=== PATIENT | female | born 1930 | race Caucasian/White ===

== ENCOUNTER 2018-02-24 09:59 | Emergency (ER) | payer OTHER, MEDICARE ==
--- NOTE | 2018-02-24 10:06 | PDOC ---
History of Present Illness - General Chief Complaint: Constipation Stated Complaint: CONSTIPATION Time Seen by Provider: 02/24/18 10:00 - History of Present Illness Initial Comments: 02/24/18 10:01 87 yo F with h/o rheumatoid arthritis and hypothyrodism who p/w constipation. Patient with last normal bowel movement ( 02-17-17). Reports ability to pass flatus, Reports scant " inch," thin bowel movement yesterday evening (02-23-17) . Patient endorses repetitive straining on BM attempt. Denies abdominal pain, N/ V, BPR. Has been taking Metamucil beginning (02-19-17) daily. Daily Prune use intake. Patient denies Salas, neck stiffness, vision change, N/V, F,C, Cough, wheezing, Palpitations, leg pain/swelling, CP, SOB, urinary complaints, abdominal pain, diarrhea, BPR, hematuria, lightheadedness, weakness, sensory changes. PMHx: as noted above. H/o appendectomy. ROS: as noted SHx: Denies Etoh, IVDA. Allergies: Lidocaine, Dipyriadomle, PCN, Epinephrine Past History - Past Medical History Allergies/Adverse Reactions: Allergies Allergy/AdvReac Type Severity Reaction Status Date / Time lidocaine HCl Allergy Severe Difficulty Verified 01/26/16 20:20 [From Xylocaine] Breathing dipyridamole Allergy Intermediate Hives Verified 01/26/16 20:20 [From Persantine] Penicillins Allergy Intermediate Swelling Verified 01/26/16 20:20 epinephrine Allergy Verified 01/26/16 20:20 Home Medications: Ambulatory Orders Etanercept [Enbrel] 50 mg SQ WEEKLY 10/23/14 Methotrexate Sodium [Methotrexate] 7.5 mg PO 3 TABS ONCE/WK 10/23/14 Calcium Carbonate/Vitamin D3 [Calcium 600 + Vit D Tablet] 1 each PO DAILY Diazepam [Valium] 5 mg PO DAILY PRN 02/24/18 Folic Acid 0.4 mg PO DAILY 02/24/18 Magnesium Oxide [Magnesium] 500 mg PO DAILY 02/24/18 Multivit-Min/Iron/Folic/Lutein [Centrum Silver Women Tablet] 1 each PO DAILY [place]-3 Fatty Acids [[place]-3] 1,000 mg PO DAILY 02/24/18 Polyethylene Glycol 3350 [Miralax (For Bowel Prep) -] 17 gm PO DAILY #1 bottle 02/24/18 Psyllium Husk [Metamucil] 1 tbs PO DAILY 02/24/18 Anemia: No Asthma: No Cancer: No Cardiac Disorders: No CVA: No COPD: No CHF: No Dementia: No Diabetes: No GI Disorders: No Disorders: No HTN: No Hypercholesterolemia: No Liver Disease: No Seizures: No 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) - Surgical History Abdominal Surgery: Yes Appendectomy: Yes Cardiac Surgery: No Cholecystectomy: No Lung Surgery: No Neurologic Surgery: No Orthopedic Surgery: Yes (LEFT HIP REPLACEMENT RIGHT KNEE REPLACEMENT RIGHT HAND SURGERY) - Suicide/Smoking/Psychosocial Hx Smoking History: Former smoker Have you smoked in the past 12 months: No Number of Cigarettes Smoked Daily: 0 If you are a former smoker, when did you quit?: 50 YEARS Hx Alcohol Use: No Drug/Substance Use Hx: No Substance Use Type: None Hx Substance Use Treatment: No Review of Systems - Review of Systems Comments:: 02/24/18 10:02 GENERAL/CONSTITUTIONAL: No fever or chills. No weakness. HEAD, EYES, EARS, NOSE AND THROAT: No change in vision. No ear pain or discharge. No sore throat. CARDIOVASCULAR: No chest pain or shortness of breath RESPIRATORY: No cough, wheezing, or hemoptysis. GASTROINTESTINAL: + Constipation. No nausea, vomiting, diarrhea. GENITOURINARY: No dysuria, frequency, or change in urination. MUSCULOSKELETAL: No joint or muscle swelling or pain. No neck or back pain. SKIN: No rash NEUROLOGIC: No headache, vertigo, loss of consciousness, or change in strength/ sensation. ENDOCRINE: No increased thirst. No abnormal weight change HEMATOLOGIC/LYMPHATIC: No anemia, easy bleeding, or history of blood clots. ALLERGIC/IMMUNOLOGIC: No hives or skin allergy. *Physical Exam - Physical Exam Comments: 02/24/18 10:03 GENERAL: Awake, alert, and fully oriented, in no acute distress HEAD: No signs of trauma, normocephalic, atraumatic EYES: PERRLA, EOMI, sclera anicteric, conjunctiva clear ENT: Hearing grossly normal, nares patent, oropharynx clear without exudates. Moist mucosa NECK: Normal ROM, supple, no lymphadenopathy, JVD, or masses LUNGS: No distress, speaks full sentences, clear to auscultation bilaterally HEART: Regular rate and rhythm, normal S1 and S2, no murmurs, rubs or gallops, peripheral pulses normal and equal bilaterally. ABDOMEN: Soft, nontender, normoactive bowel sounds. No guarding, no rebound. No masses. Neg CVA ttp. RECTAL: No gross blood on rectal. Absent fissures, prolapse, or hemorrhoids. No feces palpated in rectum. EXTREMITIES : Normal inspection, Normal range of motion, no edema. No clubbing or cyanosis. SKIN: Warm, Dry, normal turgor, no rashes or lesions noted ED Treatment Course - LABORATORY CBC & Chemistry Diagram: 02/24/18 10:24 02/24/18 10:24 - RADIOLOGY Radiology Studies Ordered: 02/24/18 14:06 EXAM#: TYPE/EXAM: RESULT: [id number] CT/ABDOMEN PELVIS CT WITH CONTR Abdomen and pelvis CT (with contrast) Clinical information: constipation Multiplanar imaging was performed following the intravenous administration of nonionic contrast. As requested enteric contrast was not administered. No prior CT/MRI studies are available at this facility for direct comparison. Colonic fecal retention is noted which is probably moderate to marked. A 3 x 1.5 cm right hepatic lobe hemangioma is noted without interval change comparison to a thoracic spine MRI study of 08/17/2010 which also partially imaged the upper abdomen. Apparent interval development of multiple small nonspecific splenic lesions is seen with a maximum diameter of 1.4 cm. No evidence of pneumoperitoneum, free intraperitoneal fluid or bowel obstruction. An approximately 5.3 x 3.4 cm left posterior adnexal cyst is seen. There is no obvious associated soft tissue nodularity or thickened internal septation. The pancreas, gallbladder, adrenal glands and kidneys demonstrate no discrete abnormality. Incidental note is again made of a 6 cm right renal cortical cyst. There is no aortic aneurysm. No obvious lymphadenopathy is identified. There is no gross evidence of acute appendicitis or diverticulitis allowing for somewhat limited visualization due to a relative paucity of intra- abdominal fat as well as contiguous unopacified bowel loops. Calcified uterine leiomyomas are noted. The urinary bladder is partially obscured due to metallic artifact arising from a left hip arthroplasty. Moderate to marked right hip degenerative joint changes. Moderate lumbar there is a scoliosis. Prominent multilevel lumbar degenerative disc and facet joint changes. Mild right middle lobe discoid atelectasis/linear scarring. Impression: Colonic fecal retention is noted which is probably moderate to marked. In comparison to a thoracic spine MRI exam of 08/17/2010 which partially imaged the upper abdomen note is made of apparent interval development of multiple small nonspecific splenic low-attenuation lesions - ? possible infarcts or metastatic disease. Direct comparison with prior CT studies would be helpful if available from a different facility. 5.3 x 3.4 cm left adnexal cyst. Stable right hepatic lobe hemangioma. Calcified uterine leiomyomas. Reported By: Barry Del Toro MD 02/24/18 14[address] Technologist: Jonathon Bee Transcribed Date/Time: 02/24/181 Classification Case Manager: Barry Del Toro Medical Decision Making - Medical Decision Making 02/24/18 10:04 87 yo F with h/o rheumatoid arthritis and hypothyrodism who p/w constipation.VSS , AF, A&Ox3. Physical exam unremarkable. Denies F/C, abdominal pain, N/V, BPR. R /o SBO. Will assess for electrolyte abnml, thyroid disfunction, malignancy. ED Course : 02/24/18 10:29 CBC,CMP, TSH, Mg, Ph, FOBT 02/24/18 10:37 CT AP IV 02/24/18 11:40 WBC: 3.0 CMP: Unremarkable FOBT: Neg 02/24/18 13:04 TSH: 0.05 02/24/18 14:06 Colonic fecal retention is noted which is probably moderate to marked. In comparison to a thoracic spine MRI exam of 08/17/2010 which partially imaged the upper abdomen note is made of apparent interval development of multiple small nonspecific splenic low-attenuation lesions - ? possible infarcts or metastatic disease. Direct comparison with prior CT studies would be helpful if available from a different facility. 5.3 x 3.4 cm left adnexal cyst. Stable right hepatic lobe hemangioma. Calcified uterine leiomyomas. Discussed Patient CT findings with patient and need to f/u with PMD. Miralax sent to pharmacy 02/24/18 14:08 Pt. stable for d/c with return precautions. Advised to f/u with PMD. *DC/Admit/Observation/Transfer Diagnosis at time of Disposition: Constipation Qualifiers: Constipation type: unspecified constipation type Qualified Code(s): K59.00 - Constipation, unspecified - Discharge Dispostion Condition at time of disposition: Stable - Prescriptions Prescriptions: Polyethylene Glycol 3350 [Miralax (For Bowel Prep) -] 17 gm PO DAILY #1 bottle - Referrals Referrals: Iam Dunbar MD [Primary Care Provider] - - Patient Instructions Printed Discharge Instructions: DI for Constipation Additional Instructions: Please return to the emergency department with any new or worsening symptoms or concerns. Please follow up with your primary care physician within 72 hours. Please take medication / Miralax as prescribed/recommended. - Post Discharge Activity - Attestations Physician Attestion: 02/24/18 10:04 I attest to the information provided in this note.
[2018-02-24 10:15] VITALS: BP 150/77; PULSE 90; TEMP 97.4; BMI 20.5
[2018-02-24 10:43] LABS: HEMATOCRIT 36.9 % (32.4-45.2); HEMOGLOBIN 11.9 GM/dl (10.7-15.3); MCHC 32.3 g/dl (32.0-36.0); MEAN CELL VOLUME 99.1 fl (80-96); PLATELET COUNT 201 K/MM3 (134-434); RBC 3.72 M/mm3 (3.60-5.2); RDW 17.4 % (11.6-15.6)
--- NOTE | 2018-02-24 10:47 | PDOC ---
Attending Attestation - Resident Resident Name: RefugioHernandezMarkus - ED Attending Attestation I have performed the following: I have examined & evaluated the patient, The case was reviewed & discussed with the resident, I agree w/resident's findings & plan - HPI HPI: 02/24/18 11:04 87 yo F with h/o rheumatoid arthritis and hypothyroidism who p/w constipation a/ w abdominal pressure with straining x 1 week. Only passed an inch of brown stool x 2 days, +flatus. Has been taking prunes, vegetable-diet and metamucil, w /o relief. Saw PMD last week for issue, rxd metamucil at that time. No AP, n/v, d, urinary sx, fever or chills. last colonoscopy ~6-7 years ago, which was unremarkable per patient. no h/o GIB or rectal bleeding PSH: appendectomy PMH; RA, hypothyroidism. 02/24/18 11:21 - Physicial Exam PE: 02/24/18 11:04 NAD, well appearing, PERRL, EOMI, MMM, nl conjunctiva, anicteric; neck supple. Chest wall kyphotic, lungs clear, RRR, abdomen soft nontender, +midline vertical scar (s/p appendectomy). BELL x4. No peripheral edema. normal color for ethnicity, WWP. Rectal exam by resident, no stool, nonbloody, no mass/fissures/rectal abnormalities. - Medical Decision Making 02/24/18 11:04 See HPI for details Vital signs reviewed, wnl. DDx. obstruction, ileus, SBO, constipation, colonic/abdominal mass. electrolyte/ metabolic derangements. Prior notes reviewed, including admissions, discharges and consultations. laboratory results and imaging reviewed, basic labs and lytes wnl, notable for mildly low WBC ~3k, but no s/s infection. guaiac neg for blood CT a/p: stool impaction yolanda with constipation; incidentalomas including splenic lesions (unclear etiology, warrants followup), hepatic hemangioma, renal cyst on right, adnexal cyst, uterine fibroids w/calcification. no perf/ obstruction or acute pathology. information relayed to pt and family. ED course: constipation care, fiber diet, may use miralax once daily and bowel regimen/stool softeners. rx meds/stool softener. Dispo: Pt informed of my clinical impression, treatment recommendations and disposition plan. All questions answered to patient's satisfaction and expressed understanding and comfort with this. Reasons for returning to the ED sooner discussed with the patient otherwise, follow up with primary care physician. At the time of discharge, the patient is alert, clinically improved, tolerating po and verbalizes understanding of instructions. Patient does not suffer from an acute life-threatening medical condition at this time she is safe for outpatient follow-up. 02/24/18 14:09
[2018-02-24 10:53] LABS: ALBUMIN 4.1 g/dl (3.5-5.0); ALK PHOS 71 U/L (32-92); ANION GAP 9 MMOL/L (8-16); BILIRUBIN,TOTAL 0.8 mg/dl (0.2-1.0); BLOOD UREA NITROGEN 13 mg/dl (7-18); CALCIUM 8.8 mg/dl (8.4-10.2); CHLORIDE 103 mmol/L (98-107); CO2 26 mmol/L (22-28); CREATININE 0.8 mg/dl (0.6-1.3); GLUCOSE,RANDOM 163 mg/dl (74-106); POTASSIUM 3.7 mmol/L (3.5-5.1); SGOT/AST 30 U/L (10-42); SGPT/ALT 23 U/L (10-40); SODIUM 138 mmol/L (136-145); TOT PROT 6.5 g/dl (6.4-8.3)
[2018-02-24 10:54] LABS: MAGNESIUM 1.8 mg/dL (1.8-2.4); PHOSPHOROUS 3.4 mg/dl (2.5-4.6)
[2018-02-24 12:03] LABS: PLATELET ESTIMATE ADEQUATE
== END 2018-02-24 14:21 | disposition home or self-care (01) ==
LOC: FER 09:59
DX: K59.00 Constipation, unspecified (principal); M06.9 Rheumatoid arthritis, unspecified; E03.9 Hypothyroidism, unspecified
CPT/HCPCS: 36415; 74177-TC; 80053; 82272; 83735; 84100; 84443; 85025; 99282-25